=== PATIENT | female | born 1950 | race Caucasian/White ===

== ENCOUNTER 2022-04-19 13:48 | Emergency (ER) | payer MEDICARE, SELFPAY ==
[2022-04-19 13:51] VITALS: BP 143/68; PULSE 59; RESP 18; TEMP 36.8; O2SAT 97; BMI 42.5
--- NOTE | 2022-04-19 13:55 | ECG_ITS ---
Test Reason : ARRYTHMIA Blood Pressure : / mmHG Vent. Rate : 059 BPM Atrial Rate : 059 BPM P-R Int : 190 ms QRS Dur : 110 ms QT Int : 422 ms P-R-T Axes : 035 -37 032 degrees QTc Int : 417 ms Sinus bradycardia Left axis deviation Moderate voltage criteria for LVH, may be normal variant ( R in aVL , [place] product ) Septal infarct , age undetermined Abnormal ECG No previous ECGs available Referred By: Generic ED Physician Electronically Signed By:Roc Elizondo
[2022-04-19 14:15] LABS: COVID-19 Test Positive (Negative)
[2022-04-19 15:23] LABS: Hematocrit 44.2 % (37.0-47.0); Hemoglobin 14.4 g/dl (12.0-16.0); Mean Corpuscular HGB Conc 32.6 g/dl (31.0-35.0); Mean Corpuscular Hemoglobin 29.4 pg (27.0-33.0); Mean Corpuscular Volume 90.2 fL (80.0-98.0); Mean Platelet Volume 10.1 fL (9.4-12.3); Platelet Count 160 X10*3/uL (160-400); Red Cell Distribution Width 13.5 % (11.0-16.0); White Blood Count 4.8 X10*3/uL (4.8-10.8)
[2022-04-19 15:36] LABS: Anion Gap 12 (12-20); Blood Urea Nitrogen 17 mg/dL (9-16); Calcium 9.3 mg/dL (8.4-10.2); Carbon Dioxide 25 mmol/L (22-29); Chloride 103 mmol/L (96-108); Creatinine Clr Calc Pharmacy 78.4; Estimated Glomerular Filt Rate > 60; Glucose Random 108 mg/dL (60-115); Sodium 136 mmol/L (135-145)
[2022-04-19 15:42] LABS: B Type Natriuretic Peptide 76 pg/mL (<100); Troponin-I High Sensitivity 3.8 ng/L (<3.5-17.0)
--- NOTE | 2022-04-19 17:21 | ECG_ITS ---
Test Reason : REPEAT Blood Pressure : / mmHG Vent. Rate : 052 BPM Atrial Rate : 052 BPM P-R Int : 200 ms QRS Dur : 106 ms QT Int : 470 ms P-R-T Axes : 026 -35 023 degrees QTc Int : 437 ms Sinus bradycardia with Premature atrial complexes Left axis deviation Moderate voltage criteria for LVH, may be normal variant ( R in aVL , [place] product ) Abnormal ECG When compared with ECG of 19-APR-2022 13:48, Premature atrial complexes are now Present Criteria for Septal infarct are no longer Present Referred By: Cayla Zavala Electronically Signed By:Roc Elizondo
--- NOTE | 2022-04-19 17:23 | ED_ITS ---
HPI - Arrhythmia/Palpitations General Chief Complaint: Arrhythmia/Palpitations Stated Complaint: covid +, symptoms Time Seen by Provider: 04/19/22 17:08 Source: patient Mode of arrival: ambulatory Limitations: no limitations History of Present Illness HPI narrative: 71-year-old female with a history of hypertension here with reports of feeling lightheaded and dizzy today. Patient tells me that on Thursday evening she started to have a low-grade fever and URI symptoms. The next day she took a COVID test that was positive. She had about 36 hours of low-grade fever and this resolved. She spoke with her primary care doctor on Thursday and started Paxlovid. She has taken 6 doses of Paxlovid. Her symptoms of fever and URI some improved. Today she felt lightheaded and dizzy with waking. She checked her pulse and it was 40. Her baseline pulse is 60. She denies any chest pain, shortness of breath or palpitations. She has been eating and drinking normally. She is taking valsartan and hydrochlorothiazide for blood pressure Related Data Allergies Allergy/AdvReac Type Severity Reaction Status Date / Time Unable to Assess Allergy Verified 04/19/22 17:21 Review of Systems Review of Systems: Yes all other systems are reviewed and are negative Constitutional: Constitutional: Reports no additional constitutional complaints, Denies body ache(s), Denies chills, Denies fever(s), Denies headache(s) and Denies weakness Eyes: Eyes: Reports no additional eye complaints and Denies change in vision ENT: Reports system reviewed and no additional complaints, except as documented, Reports dizziness, Denies headache(s), Denies nasal congestion, Denies nasal discharge and Denies neck pain Cardiovascular: Cardiovascular: Reports no additional cardiovascular complaints, Denies chest pain, Denies leg edema and Denies dyspnea Respiratory: Respiratory: Reports no additional respiratory complaints, Denies cough and Denies dyspnea Gastrointestinal: Gastrointestinal: Reports no additional gastrointestinal complaints, Denies abdominal pain, Denies diarrhea, Denies nausea and Denies vomiting Genitourinary: Genitourinary: Reports no additional female genitourinary complaints and Denies urinary incontinence Musculoskeletal: Musculoskeletal: Reports no additional musculoskeletal complaints, Denies back pain, Denies arthralgias, Denies joint swelling, Denies neck pain, Denies numbness and Denies tingling Integumentary/Breasts: Skin/Breast: Reports system reviewed and no additional complaints, except as docu and Denies rash Neurologic: Reports system reviewed and no additional complaints, except as documented, Denies Abnormal speech present, Reports dizziness, Denies hea dache(s), Denies numbness, Denies tingling and Denies weakness PMFSH Past Medical History Attestation statement: The following information was validated with the patient. Source: old records reviewed and nursing notes reviewed Social History Social History Advance Directives: No Advance Directives Information Provided: No Physical Exam Vital Signs: Vital Signs: Last Vital Signs Temp 97.7 F 04/19/22 19:37 Pulse 50 04/19/22 19:37 Resp 18 04/19/22 19:37 BP 139/49 L 04/19/22 19:37 Pulse Ox 98 04/19/22 19:37 O2 Del Method 04/19/22 19:37 BMI result Body Mass Index 42.5 Const: General: cooperative, healthy appearing, comfortable and no acute distress Orientation/consciousness: patient oriented x3 Limitations: no limitations HEENT: Head: Yes normal to inspection Ears: hearing grossly normal bilaterally General nose exam: Normal external nose present Face and sinus: Yes normal facial exam Mouth: Normal oral and palatal mucosa present Throat: Yes posterior oropharynx normal Eyes: General: appearance normal, both eyes and all related structures P upils: Equal, round and reactive pupils present Neck: Neck: Yes normal visual inspection Chest: Chest palpation & inspection: normal inspection of the chest Resp: Effort & Inspection: normal respiratory effort Auscultation: clear to auscultation bilaterally Cardio: Rate: bradycardic (46) Rhythm: regular rhythm Peripheral pulses: Peripheral pulses 2+ throughout GI: Inspection: Yes normal to inspection Palpation (GI): Soft to palpation and nontender Auscultation: normal bowel sounds Back/Spine/Pelvis: Thoracic/Lumbar Spine: thoracic and lumbar spine normal to inspection Skin: General skin exam: no rashes or lesions noted Neuro: General: patient oriented x3, no focal motor deficits and normal sensation to monofilament Cranial nerves: Yes CN's II-XII intact bilaterally, Yes Equal, round and reactive pupils present, Yes Bilaterally intact EOM present, Yes Nystagmus not present, Yes Normal facial strength present and Yes Midline tongue present Cognition (Neuro): normal cognition Speech: No Abnormal speech present Gait exam (Neuro): Normal gait present Motor exam (neuro): 5/5 motor strength present throughout Sensory Exam: Normal double simultaneous stimulation for sensation Extrem: General: Yes normal to inspection, Yes no pedal edema and Yes no calf tenderness Course Course Course Narrative: Labs unremarkable. EKG shows sinus bradycardia Likely secondary to Paxlovid Reviewed drug to drug interaction with none seen between Paxlovid it in patient's home meds. Will give normal saline bolus and reassess Reevaluation(s) Reevaluation #1: Heart rate around 50. Blood pressure stable. Patient ambulatory in the emergency room. Overall she feels pretty good. We did discuss that her lower than normal heart rate and lightheadedness may be secondary to the Paxil [place]. Therefore she would like to discontinue it. I did recommend she monitor heart rate at home as well as how she is feeling. She should return for any worsening symptoms including weakness, chest pain, syncope. Patient is agreeable to this. She will speak to her primary care doctor on Thursday and let them know how she is feeling. Time: 20:15 MDM - Arrhythmia/Palpitations MDM Narrative Medical decision making narrative: 71-year-old female with a history of hypertension who is currently COVID positive taking Paxlovid presents with reports of lightheadedness and low pulse at home and the 40s while at rest. Patient tells me her baseline heart rate is around 60. May be side effect from PAXLOVID. Will check labs, EKG, orthostatics. Will give normal saline bolus and reassess Medical Records Attestation: I reviewed the patient's medical records. Lab Data Attestation: I reviewed the patient's lab results. Result diagrams: 04/19/22 15:08 04/19/22 15:08 Labs: Lab Results 04/19/22 04/19/22 04/19/22 Range/Units 14:01 15:08 15:08 WBC 4.8 (4.8-10.8) X10*3/uL RBC 4.90 (4.20-5.50) X10*6/uL Hgb 14.4 (12.0-16.0) g/dl Hct 44.2 (37.0-47.0) % MCV 90.2 (80.0-98.0) fL MCH 29.4 (27.0-33.0) pg MCHC 32.6 (31.0-35.0) g/dl RDW 13.5 (11.0-16.0) % Plt Count 160 (160-400) X10*3/uL MPV 10.1 (9.4-12.3) fL Absolute Nucleated RBC 0.000 (0.0-0.012) X10*3/uL Nucleated RBC % (auto) 0.0 (0.0-0.2) /100WBC Sodium 136 (135-145) mmol/L Potassium 4.0 (3.3-5.1) mmol/L Chloride 103 (96-108) mmol/L Carbon Dioxide 25 (22-29) mmol/L Anion Gap 12 (12-20) BUN 17 H (9-16) mg/dL Creatinine 0.79 (0.5-1.4) mg/dL Estim Creat Clear Calc 78.4 Estimated GFR > 60 Random Glucose 108 (60-115) mg/dL Calcium 9.3 (8.4-10.2) mg/dL Magnesium 2.2 (1.6-2.6) mg/dL Troponin I High Sens (<3.5-17.0) ng/L B-Natriuretic Peptide (<100) pg/mL TSH 2.14 (0.32-4.0) uIU/mL COVID-19 ([facility]) Positive A (Negative) COVID-19 Clin Com See Note 04/19/22 Range/Units 15:08 WBC (4.8-10.8) X10*3/uL RBC (4.20-5.50) X10*6/uL Hgb (12.0-16.0) g/dl Hct (37.0-47.0) % MCV (80.0-98.0) fL MCH (27.0-33.0) pg MCHC (31.0-35.0) g/dl RDW (11.0-16.0) % Plt Count (160-400) X10*3/uL MPV (9.4-12.3) fL Absolute Nucleated RBC (0.0-0.012) X10*3/uL Nucleated RBC % (auto) (0.0-0.2) /100WBC Sodium (135-145) mmol/L Potassium (3.3-5.1) mmol/L Chloride (96-108) mmol/L Carbon Dioxide (22-29) mmol/L Anion Gap (12-20) BUN (9-16) mg/dL Creatinine (0.5-1.4) mg/dL Estim Creat Clear Calc Estimated GFR Random Glucose (60-115) mg/dL Calcium (8.4-10.2) mg/dL Magnesium (1.6-2.6) mg/dL Troponin I High Sens 3.8 (<3.5-17.0) ng/L B-Natriuretic Peptide 76 (<100) pg/mL TSH (0.32-4.0) uIU/mL COVID-19 ([facility]) (Negative) COVID-19 Clin Com ECG Data Attestation: I personally reviewed and interpreted this ECG as follows: ECG interpretation date: 04/19/22 ECG interpretation time: 13:48 Interpretation: Sinus bradycardia with rate 59, LVH, normal QT Repeat EKG 1728 shows sinus bradycardia with PACs with a rate of 52, LDH. Normal QT Discharge Plan Discharge Clinical Impression: Bradycardia, sinus Patient Disposition: Home, Self-Care Instructions: Bradycardia (ED) Additional Instructions: Stop taking the Paxlovid Continue your other home medications Monitor your pulse at home Seek care for passing out, chest pain, increasing weakness or dizziness Call your doctor on Thursday to discuss how you are feeling Referrals: Lise Mcnally PA [Primary Care Provider] - 3 days
[2022-04-19 18:01] VITALS: BP 139/55; BP 146/56; PULSE 49; PULSE 52
[2022-04-19 18:04] VITALS: BP 131/50; PULSE 48
[2022-04-19 18:05] LABS: Magnesium 2.2 mg/dL (1.6-2.6)
[2022-04-19 18:15] LABS: Thyroid Stimulating Hormone 2.14 uIU/mL (0.32-4.0)
[2022-04-19 18:36] VITALS: BP 147/51; PULSE 56; RESP 18; O2SAT 98
[2022-04-19] MEDS: 0.9 % Sodium Chloride 1,000 ML 999 ML IV (18:42)
[2022-04-19 19:37] VITALS: BP 139/49; PULSE 50; RESP 18; TEMP 36.5; O2SAT 98
[2022-04-22 01:22] LABS: Lyme Abs Screen <0.90 index
== END 2022-04-19 20:23 | disposition home or self-care (01) ==
PROVIDERS: Nurse Practitioner Family; Emergency Provider Emergency Medicine; PCP Physician Assistant
DX: U07.1 COVID-19 (principal); R00.1 Bradycardia, unspecified; I10 Essential (primary) hypertension; Z79.899 Other long term (current) drug therapy
CPT/HCPCS: 36415; 80048; 83735; 83880; 84443; 84484; 85027; 86617; 86618; 87635; 93005; 96360; 99284

== ENCOUNTER 2022-05-05 06:33 | Day surgery (SDC) | payer MEDICARE, SELFPAY ==
[2022-04-28 15:17] VITALS: BMI 42.1
--- NOTE | 2022-05-01 10:09 | MHC.SHP ---
Pre-Procedural Eval Section A Date of Service: 05/01/22 The patient is an INPATIENT: No Changes since office visit: No Cold of Flu in the past 2 weeks, No New Medical Problems, No Changes in Medication and No Patient answered all questions The History & Physical has been completed within 30 days and I have reviewed it.: Yes Section B Chief Complaint: Age-related nuclear cataract, left eye Allergies: Allergies Allergy/AdvReac Type Severity Reaction Status Date / Time macadamia nut Allergy Severe Wheezing Verified 04/28/22 15:17 animal dander Allergy Intermediate Eye Verified 04/28/22 15:17 Swelling/itching lisinopril AdvReac Intermediate Cough Verified 04/28/22 14:51 Plan Diagnosis/Plan: Unchanged I have reviewed the history and physical and performed a pertinent physical examination on my patient. No changes have occurred unless specified.
--- NOTE | 2022-05-02 08:56 | HO.ANESPROP2 ---
Documented by User: Julianne Levine NP 05/02/22 08:57 HPI - Anesthesia Eval Consult details Narrative: 71yo F for Left Cataract Extraction IOL Insertion PCP cleared No prev cataract on record PMFSH Past Medical History Medical History (Updated 04/28/22 @ 15:20 by Tere Quan, WAYLON) Asthma Basal cell carcinoma COVID-19 vaccine series completed Depression History of COVID-19 HTN (hypertension) Hypertensive retinopathy Osteopenia Surgical History Surgical History (Updated 04/28/22 @ 14:58 by Tere Quan RN) H/O colonoscopy History of tonsillectomy and adenoidectomy Social History Social History (Updated 04/28/22 @ 14:59 by Tere Quan RN) Are you a primary wound care center consultant to a significant other at home: No Do you presently have visiting nurse or other home services: No Patient Tobacco Use Status: Former Tobacco user Quit Date: 1982 Tobacco use type: Cigarette Use of substances other than those prescribed or required for medical reasons: No Have you been hit, kicked, punched, or otherwise hurt by someone within the past year? If so, by whom?: No Are you DNR?: No Advance Directives: No (unknown- is primary contact) Advance Directives Information Provided: Yes (brochure mailed) Advance Directives on File: No Recently lost weight without trying: No Eating poorly because of decreased appetite: No Nutrition Risks: No Nutritional Risk Poor oral hygiene: No Meds Allergies Allergy/AdvReac Type Severity Reaction Status Date / Time macadamia nut Allergy Severe Wheezing Verified 04/28/22 15:17 animal dander Allergy Intermediate Eye Verified 04/28/22 15:17 Swelling/itching lisinopril AdvReac Intermediate Cough Verified 04/28/22 14:51 Home Medications Medication Instructions Recorded Confirmed Last Taken Type albuterol sulfate 90 mcg/actuation 1 puff inhalation QID PRN 04/28/22 04/28/22 Unknown History aerosol inhaler (Ventolin HFA) Shortness Of Breath cholecalciferol (vitamin D3) 50 50 mcg PO Q2D 04/28/22 04/28/22 Unknown History mcg (2,000 unit) capsule (Vitamin D3) fluticasone 250 mcg-salmeterol 50 1 inh inhalation BID 04/28/22 04/28/22 Unknown History mcg/dose blistr powdr for inhalation (Advair Diskus) hydrochlorothiazide 25 mg tablet 1 tab PO DAILY 04/28/22 04/28/22 Unknown History loratadine 10 mg tablet (Claritin) 10 mg PO DAILY 04/28/22 04/28/22 Unknown History magnesium oxide 250 mg PO DAILY 04/28/22 04/28/22 Unknown History valsartan 160 mg tablet 1 tab PO DAILY 04/28/22 04/28/22 Unknown History Exam Exam Date and Time: May 02, 2022 0856 Height,Weight and Vital Signs: Height 5 ft 4 in Weight 111.3 kg Pertinent Lab Results Pertinent Lab Results: Laboratory Tests 04/19/22 04/19/22 15:08 15:08 WBC 4.8 Hgb 14.4 Hct 44.2 Plt Count 160 Sodium 136 Potassium 4.0 Chloride 103 Carbon Dioxide 25 BUN 17 H Creatinine 0.79 Assessment and Plan Assessment Anesthesia Assessment: Chart Reviewed Documented by User: Meron Kelly MD 05/05/22 08:26 PMFSH Active Problems Active Problems: Increased BMI 42 Past Medical History Medical History (Updated 04/28/22 @ 15:20 by Tere Quan RN) Asthma Basal cell carcinoma COVID-19 vaccine series completed Depression History of COVID-19 HTN (hypertension) Hypertensive retinopathy Osteopenia Family History Family history of problems with anesthesia: No Surgical History Surgical History (Updated 04/28/22 @ 14:58 by Tere Quan RN) H/O colonoscopy History of tonsillectomy and adenoidectomy History of Problems with Anesthesia: No Social History Social History (Updated 04/28/22 @ 14:59 by Tere Quan RN) Are you a primary wound care center consultant to a significant other at home: No Do you presently have visiting nurse or other home services: No Patient Tobacco Use Status: Former Tobacco user Quit Date: 1982 Tobacco use type: Cigarette Use of substances other than those prescribed or required for medical reasons: No Have you been hit, kicked, punched, or otherwise hurt by someone within the past year? If so, by whom?: No Are you DNR?: No Advance Directives: No (unknown- is primary contact) Advance Directives Information Provided: Yes (brochure mailed) Advance Directives on File: No Recently lost weight without trying: No Eating poorly because of decreased appetite: No Nutrition Risks: No Nutritional Risk Poor oral hygiene: No Meds Allergies Allergy/AdvReac Type Severity Reaction Status Date / Time macadamia nut Allergy Severe Wheezing Verified 04/28/22 15:17 animal dander Allergy Intermediate Eye Verified 04/28/22 15:17 Swelling/itching lisinopril AdvReac Intermediate Cough Verified 04/28/22 14:51 Home Medications Medication Instructions Recorded Confirmed Last Taken Type albuterol sulfate 90 mcg/actuation 1 puff inhalation QID PRN 04/28/22 04/28/22 Unknown History aerosol inhaler (Ventolin HFA) Shortness Of Breath cholecalciferol (vitamin D3) 50 50 mcg PO Q2D 04/28/22 04/28/22 Unknown History mcg (2,000 unit) capsule (Vitamin D3) fluticasone 250 mcg-salmeterol 50 1 inh inhalation BID 04/28/22 04/28/22 Unknown History mcg/dose blistr powdr for inhalation (Advair Diskus) hydrochlorothiazide 25 mg tablet 1 tab PO DAILY 04/28/22 04/28/22 Unknown History loratadine 10 mg tablet (Claritin) 10 mg PO DAILY 04/28/22 04/28/22 Unknown History magnesium oxide 250 mg PO DAILY 04/28/22 04/28/22 Unknown History valsartan 160 mg tablet 1 tab PO DAILY 04/28/22 04/28/22 Unknown History Exam Height,Weight and Vital Signs: Height 5 ft 4 in Weight 111.3 kg Vital Signs Temp Pulse Resp BP Pulse Ox O2 Del Method 05/05/22 06:44 96.5 F L 59 16 122/42 L 97 Room Air Airway Mallampati Class: II TM Dist: >3cm Neck ROM: Full Heart: RRR Lungs: CTAB Assessment and Plan Assessment Anesthesia Assessment: Anesthesia Plan Discussed Final Anesthetic Review Family History of Problems with Anesthesia: No History of Problems with Anesthesia: No NPO: Yes ASA Class: III Final Preanesthetic Review: No Changes in Pt Med Stat, Meds/Allgs Chart Reviewed, Consent Obtained/Reviewed and Anes Risks/Benef Reviewed Patient Risk: Intermediate Procedure Risk: Low Assessment/Block/Sedation in SS: Assess/Block/Sedation-SS Anesthetic Plan Anesthetic Plan: MAC: Disposition: Standard PACU
[2022-05-05 06:44] VITALS: BP 122/42; PULSE 59; RESP 16; TEMP 35.8; O2SAT 97
[2022-05-05] MEDS: Tetracaine HCl/PF 0.5% Oph Sol 4 ML DROPS 1 DROP EYE-LEFT (06:46)
[2022-05-05] MEDS: Tropicamide 1 % Ophth Sol 3 ML BTL 1 DROP EYE-LEFT ×3 (06:48→06:58)
[2022-05-05] MEDS: Cyclopentolate 1 % Ophth Sol 2 ML DRPBTL 1 DROP EYE-LEFT ×3 (06:49→07:00)
[2022-05-05] MEDS: Phenylephrine HCL 2.5% Oph SoL 2 ML BOTTLE 1 DROP EYE-LEFT ×3 (06:53→07:01)
[2022-05-05] MEDS: Lactated Ringers 500 ML 50 ML IV (07:07)
--- NOTE | 2022-05-05 07:53 | HO.PNOPHT ---
Ophthalmology Procedure Procedure Date of Service: 05/05/22 Ophthalmology Viscoelastic: Healon Duet Dual Pack Pro Ophthalmology Lenses: TECNIS [id number] (25.5) Procedure Notes: PREOPERATIVE DIAGNOSIS: Decreased visual acuity left eye secondary to cataract POSTOPERATIVE DIAGNOSIS: Same PROCEDURE: Left cataract extraction with intraocular lens insertion SURGEON: Alonzo Kingsley M.D. ANESTHESIA: Topical/MAC ESTIMATED BLOOD LOSS: None COMPLICATIONS: None After obtaining informed consent, the patient was brought to the operation room suite and placed in the supine position. After adequate sedation per anesthesia, topical drops of Tetracaine were given to the left eye. The eye was then prepped and draped in the usual sterile fashion. The operating room microscope was then positioned over the operative eye and a lid speculum placed. A paracentesis was created. Viscoelastic was then instilled into the anterior chamber. A three plane incision was then created temporally, utilizing a 2.85 mm keratome. Capsulotomy forceps were then utilized to create a circular tear capsulotomy. Hydrodissection and hydrodelineation were carried out until adequate mobilization of the nucleus occurred. Phacoemulsification was then utilized to remove the dense central nucleus followed by removal of the cortical material utilizing the automated aspiration irrigation unit. Viscoat elastic was instilled into the posterior capsular bag followed by placement of a posterior chamber intraocular lens without difficulty. The residual Viscoat elastic was then removed utilizing the automated IA machine. The wound was check and found to be watertight. The patient tolerated the procedure well and the lid speculum was removed. Intracameral injection of Vigamox 0.1 mL followed by a subtenon injection of Kenalog-40 0.2 mL were administered. The patient will be seen in the a.m.
[2022-05-05 08:20] VITALS: BP 118/52; PULSE 47; RESP 16; TEMP 36.5; O2SAT 99
== END 2022-05-05 08:33 | disposition home or self-care (01) ==
LOC: HO.SSS 06:34
PROVIDERS: PCP Physician Assistant; Visit Provider Ophthalmology
PROC: (CPT 66985; principal; 2022-05-05 07:50)
DX: H25.12 Age-related nuclear cataract, left eye (principal); H52.4 Presbyopia; H35.033 Hypertensive retinopathy, bilateral; I10 Essential (primary) hypertension; M19.90 Unspecified osteoarthritis, unspecified site; J45.909 Unspecified asthma, uncomplicated; Z79.51 Long term (current) use of inhaled steroids; Z79.899 Other long term (current) drug therapy; Z88.8 Allergy status to other drugs, medicaments and biological substances; Z87.891 Personal history of nicotine dependence
CPT/HCPCS: 66984; J2250; J3010; J3300; V2632

== ENCOUNTER 2022-05-12 08:23 | Day surgery (SDC) | payer MEDICARE, SELFPAY ==
[2022-04-28 15:21] VITALS: BMI 42.1
--- NOTE | 2022-05-08 08:51 | MHC.SHP ---
Pre-Procedural Eval Section A Date of Service: 05/08/22 The patient is an INPATIENT: No Changes since office visit: No Cold of Flu in the past 2 weeks, No New Medical Problems, No Changes in Medication and No Patient answered all questions The History & Physical has been completed within 30 days and I have reviewed it.: Yes Section B Chief Complaint: Age-related nuclear cataract, right eye Allergies: Allergies Allergy/AdvReac Type Severity Reaction Status Date / Time macadamia nut Allergy Severe Wheezing Verified 04/28/22 15:17 animal dander Allergy Intermediate Eye Verified 04/28/22 15:17 Swelling/itching lisinopril AdvReac Intermediate Cough Verified 04/28/22 14:51 Plan Diagnosis/Plan: Unchanged I have reviewed the history and physical and performed a pertinent physical examination on my patient. No changes have occurred unless specified.
--- NOTE | 2022-05-09 10:05 | P.CONAN_ITS ---
Documented by User: Julianne Levine NP 05/09/22 10:06 HPI - Anesthesia Eval Consult details Narrative: 71yo F for Right Cataract Extraction IOL Insertion PCP cleared Left eye 05/05/22 with TIVA: Fent 50, Midaz 1 PMFSH Past Medical History Medical History (Updated 04/28/22 @ 15:20 by Tere Quan RN) Asthma Basal cell carcinoma COVID-19 vaccine series completed Depression History of COVID-19 HTN (hypertension) Hypertensive retinopathy Osteopenia Family History Family history of problems with anesthesia: No Surgical History Surgical History (Updated 04/28/22 @ 14:58 by Tere Quan RN) H/O colonoscopy History of tonsillectomy and adenoidectomy History of Problems with Anesthesia: No Social History Social History (Updated 04/28/22 @ 14:59 by Tere Quan RN) Are you a primary clinical manager home care to a significant other at home: No Do you presently have visiting nurse or other home services: No Patient Tobacco Use Status: Former Tobacco user Quit Date: 1982 Tobacco use type: Cigarette Use of substances other than those prescribed or required for medical reasons: No Have you been hit, kicked, punched, or otherwise hurt by someone within the past year? If so, by whom?: No Are you DNR?: No Advance Directives Information Provided: Yes (brochure mailed) Advance Directives on File: No Recently lost weight without trying: No Eating poorly because of decreased appetite: No Nutrition Risks: No Nutritional Risk Poor oral hygiene: No Meds Allergies Allergy/AdvReac Type Severity Reaction Status Date / Time macadamia nut Allergy Severe Wheezing Verified 04/28/22 15:17 animal dander Allergy Intermediate Eye Verified 04/28/22 15:17 Swelling/itching lisinopril AdvReac Intermediate Cough Verified 04/28/22 14:51 Home Medications Medication Instructions Recorded Confirmed Last Taken Type albuterol sulfate 90 mcg/actuation 1 puff inhalation QID PRN 04/28/22 05/12/22 05/12/22 History aerosol inhaler (Ventolin HFA) Shortness Of Breath cholecalciferol (vitamin D3) 50 50 mcg PO Q2D 04/28/22 04/28/22 Unknown History mcg (2,000 unit) capsule (Vitamin D3) fluticasone 250 mcg-salmeterol 50 1 inh inhalation BID 04/28/22 04/28/22 Unknown History mcg/dose blistr powdr for inhalation (Advair Diskus) hydrochlorothiazide 25 mg tablet 1 tab PO DAILY 04/28/22 04/28/22 Unknown History loratadine 10 mg tablet (Claritin) 10 mg PO DAILY 04/28/22 04/28/22 Unknown History magnesium oxide 250 mg PO DAILY 04/28/22 04/28/22 Unknown History valsartan 160 mg tablet 1 tab PO DAILY 04/28/22 04/28/22 Unknown History Exam Exam Date and Time: May 09, 2022 1005 Height,Weight and Vital Signs: Height 5 ft 4 in Weight 111.3 kg Pertinent Lab Results Pertinent Lab Results: Laboratory Tests 04/19/22 04/19/22 15:08 15:08 WBC 4.8 Hgb 14.4 Hct 44.2 Plt Count 160 Sodium 136 Potassium 4.0 Chloride 103 Carbon Dioxide 25 BUN 17 H Creatinine 0.79 Assessment and Plan Assessment Anesthesia Assessment: Chart Reviewed Final Anesthetic Review Family History of Problems with Anesthesia: No History of Problems with Anesthesia: No Documented by User: Meron Kelly MD 05/12/22 10:17 PMFSH Active Problems Active Problems: Increased BMI 42.1 Past Medical History Medical History (Updated 04/28/22 @ 15:20 by Tere Quan RN) Asthma Basal cell carcinoma COVID-19 vaccine series completed Depression History of COVID-19 HTN (hypertension) Hypertensive retinopathy Osteopenia Surgical History Surgical History (Updated 04/28/22 @ 14:58 by Tere Quan RN) H/O colonoscopy History of tonsillectomy and adenoidectomy Social History Social History (Updated 04/28/22 @ 14:59 by Tere Quan RN) Are you a primary clinical manager home care to a significant other at home: No Do you presently have visiting nurse or other home services: No Patient Tobacco Use Status: Former Tobacco user Quit Date: 1982 Tobacco use type: Cigarette Use of substances other than those prescribed or required for medical reasons: No Have you been hit, kicked, punched, or otherwise hurt by someone within the past year? If so, by whom?: No Are you DNR?: No Advance Directives Information Provided: Yes (brochure mailed) Advance Directives on File: No Recently lost weight without trying: No Eating poorly because of decreased appetite: No Nutrition Risks: No Nutritional Risk Poor oral hygiene: No Meds Allergies Allergy/AdvReac Type Severity Reaction Status Date / Time macadamia nut Allergy Severe Wheezing Verified 04/28/22 15:17 animal dander Allergy Intermediate Eye Verified 04/28/22 15:17 Swelling/itching lisinopril AdvReac Intermediate Cough Verified 04/28/22 14:51 Home Medications Medication Instructions Recorded Confirmed Last Taken Type albuterol sulfate 90 mcg/actuation 1 puff inhalation QID PRN 04/28/22 05/12/22 05/12/22 History aerosol inhaler (Ventolin HFA) Shortness Of Breath cholecalciferol (vitamin D3) 50 50 mcg PO Q2D 04/28/22 04/28/22 Unknown History mcg (2,000 unit) capsule (Vitamin D3) fluticasone 250 mcg-salmeterol 50 1 inh inhalation BID 04/28/22 04/28/22 Unknown History mcg/dose blistr powdr for inhalation (Advair Diskus) hydrochlorothiazide 25 mg tablet 1 tab PO DAILY 04/28/22 04/28/22 Unknown History loratadine 10 mg tablet (Claritin) 10 mg PO DAILY 04/28/22 04/28/22 Unknown History magnesium oxide 250 mg PO DAILY 04/28/22 04/28/22 Unknown History valsartan 160 mg tablet 1 tab PO DAILY 04/28/22 04/28/22 Unknown History Exam Height,Weight and Vital Signs: Height 5 ft 4 in Weight 111.3 kg Vital Signs Temp Pulse Resp BP Pulse Ox O2 Del Method 05/12/22 09:31 977.4 F H 53 17 148/74 H 99 Room Air 05/12/22 09:07 97.4 F 53 17 99 Room Air Airway Mallampati Class: II TM Dist: >3cm Neck ROM: Full Loose/Missing/Broken Teeth: No (Patient denies) Heart: RRR Lungs: CTAB Assessment and Plan Assessment Anesthesia Assessment: Anesthesia Plan Discussed Final Anesthetic Review NPO: Yes ASA Class: III Final Preanesthetic Review: No Changes in Pt Med Stat, Meds/Allgs Chart Reviewed, Consent Obtained/Reviewed and Anes Risks/Benef Reviewed Patient Risk: Intermediate Procedure Risk: Low Assessment/Block/Sedation in SS: Assess/Block/Sedation-SS Anesthetic Plan Anesthetic Plan: MAC: Disposition: Standard PACU
[2022-05-12 09:07] VITALS: PULSE 53; RESP 17; TEMP 36.3; O2SAT 99
[2022-05-12 09:31] VITALS: BP 148/74; PULSE 53; RESP 17; TEMP 525.2; TEMP 977.4; O2SAT 99
[2022-05-12] MEDS: Phenylephrine HCL 2.5% Oph SoL 2 ML BOTTLE 1 DROP EYE-RIGHT ×3 (09:36→09:46)
[2022-05-12] MEDS: Tetracaine HCl/PF 0.5% Oph Sol 4 ML DROPS 1 DROP EYE-RIGHT (09:36)
[2022-05-12] MEDS: Tropicamide 1 % Ophth Sol 3 ML BTL 1 DROP EYE-RIGHT ×3 (09:42→09:48)
[2022-05-12] MEDS: Cyclopentolate 1 % Ophth Sol 2 ML DRPBTL 1 DROP EYE-RIGHT ×3 (09:42→09:47)
[2022-05-12] MEDS: Lactated Ringers 500 ML 50 ML IV (10:01)
--- NOTE | 2022-05-12 10:43 | HO.PNOPHT ---
Ophthalmology Procedure Procedure Date of Service: 05/12/22 Ophthalmology Viscoelastic: Healsita Murguiat Dual Pack Pro Ophthalmology Lenses: TECNIS [id number] (26.5) Procedure Notes: PREOPERATIVE DIAGNOSIS: Decreased visual acuity right eye secondary to cataract POSTOPERATIVE DIAGNOSIS: Same PROCEDURE: Right cataract extraction with intraocular lens insertion SURGEON: Alonzo Kingsley M.D. ANESTHESIA: Topical/MAC ESTIMATED BLOOD LOSS: None COMPLICATIONS: None After obtaining informed consent, the patient was brought to the operating room suite and placed in the supine position. After adequate sedation per anesthesia, topical drops of Tetracaine were given to the right eye. The eye was then prepped and draped in the usual sterile fashion. The operating room microscope was then positioned over the operative eye and a lid speculum placed. A paracentesis was created. Viscoelastic was then instilled into the anterior chamber. A three plane incision was then created temporally, utilizing a 2.85 mm keratome. Capsulotomy forceps were then utilized to create a circular tear capsulotomy. Hydrodissection and hydrodelineation were carried out until adequate mobilization of the nucleus occurred. Phacoemulsification was then utilized to remove the dense central nucleus followed by removal of the cortical material utilizing the automated aspiration irrigation unit. Viscoelastic was instilled into the posterior capsular bag followed by placement of a posterior chamber intraocular lens without difficulty. The residual Viscoelastic was then removed utilizing the automated IA machine. The wound was checked and found to be watertight. The patient tolerated the procedure well and the lid speculum was removed. Intracameral injection of Vigamox 0.1 mL followed by a subtenon injection of Kenalog-40 0.2 mL were administered. The patient will be seen in the a.m.
[2022-05-12 11:08] VITALS: BP 124/58; PULSE 52; RESP 18; TEMP 36.2
== END 2022-05-12 11:21 | disposition home or self-care (01) ==
PROVIDERS: PCP Physician Assistant; Visit Provider Ophthalmology
PROC: (CPT 66985; principal; 2022-05-12 10:30)
DX: H25.11 Age-related nuclear cataract, right eye (principal); H52.4 Presbyopia; H35.033 Hypertensive retinopathy, bilateral; Z83.511 Family history of glaucoma; I10 Essential (primary) hypertension; J45.909 Unspecified asthma, uncomplicated; Z79.51 Long term (current) use of inhaled steroids; Z79.899 Other long term (current) drug therapy; Z88.8 Allergy status to other drugs, medicaments and biological substances; Z87.891 Personal history of nicotine dependence
CPT/HCPCS: 66984; J2250; J3010; J3300; V2632

== ENCOUNTER 2023-05-18 11:14 | Outpatient (REF) | payer MEDICARE, SELFPAY ==
[2023-05-18 15:43] VITALS: BMI 46.1
[2023-05-18 15:44] VITALS: BP 135/63; PULSE 55; RESP 18; TEMP 36.3; O2SAT 99
== END 2023-05-18 11:15 | disposition home or self-care (01) ==
LOC: HO.MS 11:14
PROVIDERS: Visit Provider Ophthalmology
PROC: (CPT 66821; principal; 2023-05-18 13:40)
DX: H26.492 Other secondary cataract, left eye (principal)
CPT/HCPCS: 66821